=== PATIENT | male | born 1950 | race Caucasian/White ===

== ENCOUNTER → 2024-12-14 07:39 | Outpatient (REF) | payer MEDICARE, BC, SELFPAY ==
[2024-12-14 09:01] LABS: Hematocrit 39.7 % (39.0-52.0); Hemoglobin 12.7 g/dL (13.0-18.0); Mean Corp Hgb Conc. 32.0 g/dL (33.0-37.0); Mean Corpuscular Volume 85.9 fL (80.0-94.0); Platelet Count 122 10^3/uL (130-400); Red Cell Dist. Width 14.7 % (11.5-14.5)
[2024-12-14 09:21] LABS: ALT (SGPT) 19 U/L (0-50); AST (SGOT) 26 U/L (17-59); Albumin 4.4 g/dl (3.5-5.0); Alkaline Phosphatase 61 U/L (38-126); Blood Urea Nitrogen 18 mg/dl (9-20); Calcium 9.5 mg/dl (8.4-10.2); Carbon Dioxide 27 mmol/L (22-30); Chloride 107 mmol/L (98-107); Glucose 100 mg/dl (70-99); Potassium 4.3 mmol/L (3.5-5.1); Sodium 142 mmol/L (135-145); Total Protein 6.8 g/dl (6.3-8.2); eGFR > 60.00
== END ==
LOC: SDSPAT 07:39
PROVIDERS: ATTENDING PHYSICIAN Surgery; FAMILY PHYSICIAN Family Medicine
DX: Z01.818 Encounter for other preprocedural examination (principal)
CPT/HCPCS: 36415; 80053; 85027; 93005

== ENCOUNTER 2024-12-21 06:22 | Day surgery (SDC) | payer MEDICARE, BC, SELFPAY ==
[2024-12-14 14:02] VITALS: BMI 24.2
[2024-12-21] VITALS (11 sets, daily range): BP systolic 157–185; BP diastolic 73–89; BMI 24.2
--- NOTE | 2024-12-21 09:43 | W.SUR.PREOP ---
Pre-Operative Surgical Note
-
I have examined this patient prior to the performance of the scheduled procedure.
The patient's condition is unchanged from the time of the current History and
Physical and the patient is able to undergo the scheduled procedure.
[2024-12-21] MEDS: NORMOSOL-R/PLASMALYTE-A 1000 IV (11:10)
[2024-12-21] MEDS: TYLENOL 1000 MG PO (11:11)
--- NOTE | 2024-12-21 14:52 | W.IMMPOSTOP ---
Addendum entered and electronically signed by Raymundo Cullen MD 12/21/24 15:01:
#[id number]
Original Note:
Surgical Immed Post Op Note
-
Primary Surgeon: Raymundo Cullen MD
Assisting Surgeon: Alex DIAZ
Pre-op Diagnosis: CCC
Post-op Diagnosis: CCC
Procedure Performed: Laparoscopic Cholecystectomy
Anesthesia Type: GETA + 0.25% Marcaine w/ epi
Specimen / Cultures: GB
Estimated Blood Loss: 12mL
Complications: None immediate
Operative Findings: Tensely distended gallbladder obstructed from 2 large impacted gallstones with chronic inflammatory changes. Cystic artery identified and controlled with clips. Cystic artery branch controlled with clips. Cystic duct
controlled with 3 clips proximally 1 clip distally. Gallbladder removed off the liver bed intact and extracted at epigastric port site which had to be enlarged to accommodate the large gallstones.
[2024-12-21] MEDS: DILAUDID 0.25 MG IV ×2 (15:47→16:03)
== END 2024-12-21 18:05 | disposition home or self-care (01) ==
LOC: SDS 06:22
PROVIDERS: ATTENDING PHYSICIAN Surgery; FAMILY PHYSICIAN Family Medicine
DX: K80.10 Calculus of gallbladder with chronic cholecystitis without obstruction (principal)
CPT/HCPCS: 47562; 88304